=== PATIENT | male | born 1980 | race Two or more races ===

== ENCOUNTER 2024-03-30 11:03 | Emergency (ER) | payer OTHER ==
[~2024-03-30] VITALS: Ht 177.8 cm; Wt 81.6 kg
[2024-03-30 13:17] LABS: BASOPHILS # (AUTO) 0.1 K/uL (0.0-0.2); BASOPHILS % (AUTO) 0.4 % (0.0-2.0); CALCIUM, SERUM 9.6 mg/dL (8.5-10.1); CARBON DIOXIDE 25 mmol/L (21-32); CHLORIDE 102 mmol/L (98-107); CREATININE 0.6 mg/dL (0.6-1.3); EOSINOPHILS % (AUTO) 0.3 % (0.0-6.0); GLUCOSE 108 mg/dL (74-106); HEMATOCRIT 45 % (39-51); HEMOGLOBIN 15.4 g/dL (13.5-17.5); LYMPHOCYTES # (AUTO) 1.4 K/uL (0.8-4.8); LYMPHOCYTES % (AUTO) 9.9 % (20.0-44.0); MEAN CORPUSCULAR HEMOGLOBIN 31 PG (26.0-33.0); MEAN CORPUSCULAR HGB CONC 34 g/dl (31.0-36.0); MEAN CORPUSCULAR VOLUME 90 fL (80-96); MONOCYTES # (AUTO) 0.6 K/uL (0.1-1.30); NEUTROPHILS # (AUTO) 12.3 K/uL (1.8-8.9); NEUTROPHILS % (AUTO) 85.4 % (43.0-81.0); PLATELET COUNT (AUTO) 250 K/uL (150-450); POTASSIUM 4.2 mmol/L (3.5-5.1); RED BLOOD CELL COUNT(AUTO) 5.03 MIL/uL (4.5-6.0); RED CELL DISTRIBUTION WIDTH 14.5 % (11.5-15.0); SODIUM SERUM 137 mmol/L (136-145); UREA NITROGEN, BLOOD 10 mg/dL (7-18); WHITE BLOOD COUNT (AUTO) 14.4 K/uL (4.3-11.0)
[2024-03-30 13:25] LABS: D-DIMER 0.37 mg/L(FEU (0.17-0.50); INR 0.94 (0.91-1.10); PARTIAL THROMBOPLASTIN TIME 31.7 SEC (24.3-34.3)
[2024-03-30 13:30] LABS: NT-PRO BNP 98 pg/mL (0-125)
[2024-03-30] MEDS: IV NS 0.9% 1,000 ML BAG IV ONE (13:30)
[2024-03-30] MEDS: ACETAMINOPHEN 325 MG TABLET PO ONE (13:30)
[2024-03-30] MEDS: LORAZEPAM 1 MG TABLET PO ONE (14:00)
[2024-03-30] MEDS ORDERED: ACETAMINOPHEN 325 MG TABLET ONE (14:01)
[2024-03-30] MEDS ORDERED: LORAZEPAM 1 MG TABLET ONE (14:01)
[2024-03-30 15:48] LABS: AMPHETAMINE, URINE POSITIVE (NEGATIVE); BARBITURATE, URINE NEGATIVE (NEGATIVE); BENZODIAZEPINE, URINE NEGATIVE (NEGATIVE); CANNABINOID, URINE NEGATIVE (NEGATIVE); COCCAINE, URINE NEGATIVE (NEGATIVE); PHENCYCLIDINE SCREEN,URINE NEGATIVE (NEGATIVE)
[2024-03-30 15:51] LABS: OPIATE, URINE POSITIVE (NEGATIVE)
[2024-03-30 16:54] VITALS: BP 129/75; TEMP 98; O2SAT 97
== END 2024-03-30 17:01 ==
LOC: ER 11:09
DX: R07.9 Chest pain, unspecified (principal); R05.9 Cough, unspecified; R00.2 Palpitations; F25.9 Schizoaffective disorder, unspecified; F19.10 Other psychoactive substance abuse, uncomplicated; F17.200 Nicotine dependence, unspecified, uncomplicated; Z88.0 Allergy status to penicillin; Z86.718 Personal history of other venous thrombosis and embolism
CPT/HCPCS: 36415; 71045-TC; 80048-TC; 83880; 84484-TC; 85025-TC; 85378-TC; 85730-TC; J7030